=== PATIENT | female | born 1960 | race Caucasian/White ===

== ENCOUNTER 2019-02-09 09:00 | Outpatient (CLI) | payer MEDICARE ==
[2011-04-27 23:30] VITALS: BMI 38.3
== END 2019-02-09 10:00 | disposition home or self-care (01) ==
LOC: D.MAMMO 09:00
PROVIDERS: ATTEND Family Medicine
DX: Z12.31 Encounter for screening mammogram for malignant neoplasm of breast (principal)

== ENCOUNTER 2019-03-16 08:00 | Outpatient (CLI) | payer MEDICARE ==
[2011-04-27 23:30] VITALS: BMI 38.3
== END 2019-03-16 10:00 | disposition home or self-care (01) ==
LOC: D.MAMMO 08:00
PROVIDERS: ATTEND Family Medicine
DX: R92.8 Other abnormal and inconclusive findings on diagnostic imaging of breast (principal)

== ENCOUNTER → 2019-12-20 09:00 | Outpatient (CLI) | payer BC ==
[2011-04-27 23:30] VITALS: BMI 38.3
== END | disposition home or self-care (01) ==
LOC: D.MAMMO 09:00
PROVIDERS: ATTEND Family Medicine
DX: N64.4 Mastodynia (principal)